=== PATIENT | male | born 1950 | race Caucasian/White ===

== ENCOUNTER → 2017-06-24 | Outpatient (CLI) | payer MEDICARE, OTHER ==
[2015-04-27 12:20] VITALS: BP 160/88
--- NOTE | 2017-06-24 11:14 | CARD ---
MR#: [id number] Date of Study: 06/24/2017 Ordering Physician: ALBERTO HO, Referring Physician: ALBERTO HO, Kae: Leidy Gomes [facility] APPROVED REPORT EXAM: Two-dimensional and M-mode echocardiogram with Doppler and color Doppler. Other Information Quality : Technically Difficult Technically limited study due to body habitus. INDICATION Palpitations 2D DIMENSIONS Left Atrium(2D)3.5 (1.6-4.0cm)IVSd1.3 (0.7-1.1cm) Aortic Root(2D)2.8 (2.0-3.7cm)LVDd5.6 (3.9-5.9cm) LVOT Diameter2.4 (1.8-2.4cm)PWd1.0 (0.7-1.1cm) LVDs3.5 (2.5-4.0cm)FS (%) 36.8 % SV101.6 mlLVEF(%)66.0 (>50%) Aortic Valve AoV Peak Dino.137.3cm/sAoV VTI29.2cm AO Peak GR.7.5mmHgLVOT Peak Dino.83.4cm/s LVOT VTI 16.17cmAO Mean GR.4mmHg RD (VMAX)2.19tg1XQJ (VTI)2.55cm2 Mitral Valve MV E Ddimoryi96.7cm/sMV DECEL PLLF232ao MV A Naiykorg87.3cm/sE/A Ratio1.0 Pulmonary Valve PV Peak Iazbpipr82.1cm/sPV Peak Grad.3mmHg LEFT VENTRICLE The left ventricle is normal size. There is normal left ventricular wall thickness. The left ventricu lar systolic function is normal. The Ejection Fraction is 60-65%. There is normal LV segmental wall m otion. RIGHT VENTRICLE The right ventricle is normal size. There is normal right ventricular wall thickness. The right ventr icular systolic function is normal. ATRIA The left atrium size is normal. The right atrium size is normal. The interatrial septum is intact wit h no evidence for an atrial septal defect or patent foramen ovale as noted on 2-D or Doppler imaging. AORTIC VALVE The aortic valve is trileaflet. The aortic valve is mildly sclerotic. Doppler and Color Flow revealed no significant aortic regurgitation. There is no significant aortic valvular stenosis. MITRAL VALVE The mitral valve is normal in structure and function. There is no evidence of mitral valve prolapse. There is no mitral valve stenosis. Doppler and Color Flow revealed no mitral valve regurgitation note d. TRICUSPID VALVE The tricuspid valve is normal in structure and function. Doppler and Color Flow revealed trace tricus pid regurgitation. There is no tricuspid valve stenosis. PULMONIC VALVE The pulmonary valve is normal in structure and function. Doppler and Color Flow revealed trace pulmon ic valvular regurgitation. GREAT VESSELS The aortic root is normal in size. The ascending aorta is normal in size. The IVC is normal in size a nd collapses >50% with inspiration. PERICARDIAL EFFUSION There is no pleural effusion. There is no evidence of significant pericardial effusion. Critical Notification Critical Value: No <Conclusion> The left ventricular systolic function is normal. The Ejection Fraction is 60-65%. There is normal LV segmental wall motion. Doppler and Color Flow revealed trace tricuspid regurgitation. There is no evidence of significant pericardial effusion. Signed by : Alexis Anders, Electronically Approved : 06/24/2017 11:14:02
== END | disposition home or self-care (01) ==
LOC: ECHO 09:35
PROVIDERS: ATTEND Internal Medicine Cardiovascular Disease
DX: R00.2 Palpitations (principal); I07.1 Rheumatic tricuspid insufficiency
CPT/HCPCS: 93306

== ENCOUNTER 2021-02-23 19:29 | Emergency (ER) | payer MEDICARE ==
[~2021-02-23] VITALS: Ht 177.8 cm; Wt 141.6 kg
--- NOTE | 2021-02-23 19:55 | PHYS DOC ---
Past History Past Medical History: Arthritis, GERD, Hypertension Past Surgical History: Other Additional Past Surgical Histo: vericose veins Alcohol Use: Occasionally Drug Use: None Adult General Chief Complaint Chief Complaint: SYNCOPE HPI HPI Patient is a 70-year-old male presenting via EMS for fall. States he was at local restaurant and just ordered a beer to drink with friends. States he drank no more than a quarter of the beer when he in a seated position started getting lightheaded and dizzy. Patient reports he does not remember after that. It was observed that patient fell forward from seated position hitting anterior face on table and falling on the ground. There was witnessed loss of consciousness for less than 30 seconds that self resolved. There was no seizure activity or other concerning findings reported while patient was on the ground. EMS was immediately contacted to come and assess patient. On evaluation, patient AAO x3 and hemodynamically stable. Nonetheless, given the symptoms, patient sent to our ER for evaluation. Denies any recent changes in health, concerning ingestions, medication changes or sick contacts. Admits on arrival that he is still somewhat lightheaded and is nauseous. Medications reviewed, is on aspirin but no other anticoagulants Review of Systems Review of Systems Fourteen body systems of review of systems have been reviewed. See HPI for pertinent positives and negative responses, other rocha all other systems are negative, non-pertinent or non-contributory Physical Exam Physical Exam Constitutional: Pt is oriented to person, place, and time. Pt appears well-developed and well- nourished. HEENT: Head: Normocephalic and atraumatic. External ears unremarkable Conjunctivae and EOM are normal. Pupils are equal, round, and reactive to light. Oropharynx is clear and moist. No hematomas or lacerations or abrasions to face or scalp OP clear, there is residual blood present to bilateral nostrils and in posterior oropharynx, no malocclusion, dentition intact Nares clear, no nasal septal hematoma Midface stable Neck: C-spine midline nontender, no step-offs Cardiovascular: Normal rate, regular rhythm and normal heart sounds. Pulmonary/Chest: Effort normal and breath sounds normal. No respiratory distress. No wheezes. CTA bilaterally Abdominal: Soft and protuberant. Bowel sounds are normal. Pt exhibits no distension. There is no tenderness. Musculoskeletal: No bony tenderness to extremities, no deformities, full ROM extremities Chest wall stable Pelvis stable and non-tender No vertebral TTP and spine without stepoffs Neurological: Pt is alert and oriented to person, place, and time. Moving all extremities willfully, able to wiggle all fingers and toes Alert and oriented x 3 Cranial nerves II through XII intact Motor and sensory function intact No bladder or bowel anesthesia Skin: Skin is warm and dry. No abrasions, no lacerations Psychiatric: Behavior is appropriate for situation Current Patient Data Vital Signs Vital Signs Date Time Temp Pulse Resp B/P (MAP) Pulse Ox O2 Delivery O2 Flow Rate FiO2 02/23/21 19:32 98.1 68 25 92 Room Air Lab Results Laboratory Tests Test 02/23/21 19:40 02/23/21 19:51 White Blood Count 8.5 x10^3/uL Red Blood Count 4.84 x10^6/uL Hemoglobin 14.9 g/dL Hematocrit 44.6 % Mean Corpuscular Volume 92 fL Mean Corpuscular Hemoglobin 31 pg Mean Corpuscular Hemoglobin Concent 33 g/dL Red Cell Distribution Width 13.5 % Platelet Count 179 x10^3/uL Neutrophils (%) (Auto) 68 % Lymphocytes (%) (Auto) 20 % Monocytes (%) (Auto) 10 % Eosinophils (%) (Auto) 2 % Basophils (%) (Auto) 1 % Neutrophils # (Auto) 5.8 x10^3uL Lymphocytes # (Auto) 1.7 x10^3/uL Monocytes # (Auto) 0.8 x10^3/uL Eosinophils # (Auto) 0.2 x10^3/uL Basophils # (Auto) 0.1 x10^3/uL Sodium Level 140 mmol/L Potassium Level 3.6 mmol/L Chloride Level 103 mmol/L Carbon Dioxide Level 31 mmol/L Anion Gap 6 Blood Urea Nitrogen 20 mg/dL Creatinine 1.0 mg/dL Estimated GFR (Cockcroft-Gault) 73.5 BUN/Creatinine Ratio 20 Glucose Level 143 mg/dL Calcium Level 9.3 mg/dL Total Bilirubin 0.6 mg/dL Aspartate Amino Transf (AST/SGOT) 20 U/L Alanine Aminotransferase (ALT/SGPT) 26 U/L Alkaline Phosphatase 69 U/L Troponin I Quantitative < 0.017 ng/mL Total Protein 6.6 g/dL Albumin 3.8 g/dL Albumin/Globulin Ratio 1.4 Ethyl Alcohol Level < 10 mg/dL Glucose (Fingerstick) 141 mg/dL Current Medications Medications (Trade) Dose Ordered Sig/Naeem Route PRN Reason Start Time Stop Time Status Last Admin Dose Admin Ondansetron HCl (Zofran) 4 mg 1X ONCE IVP 02/23/21 20:00 02/23/21 20:01 UNV EKG EKG EKG ordered and interpreted by myself 1942 hrs. is sinus rhythm at 67 bpm, QTC 494 otherwise unremarkable intervals, left axis deviation, no acute ischemic findings, no STEMI Radiology/Procedures Radiology/Procedures Exam: CT head, maxillofacial and cervical spine INDICATION: Syncope with fall and anterior face, head TECHNIQUE: Sequential axial images through the head, face and cervical spine were obtained without the administration of IV contrast. Exposure: One or more of the following in the visualized dose reduction techn iques were utilized for this examination: 1. Automated exposure control 2. Adjustment of the MA and/or KV according to patient size 3. Use of iterative of reconstructive technique Comparisons: None FINDINGS: Head: No focal parenchymal lesion or hemorrhage is identified. There is no midline shift or sulcal effacement. No acute vascular territory infarction is identified. Cary-white distinction is preserved. The ventricular system is within normal limits without compression hydrocephalus. The basal cisterns are well maintained. Face: The visualized portions of the paranasal sinuses and mastoid air cells are well-pneumatized. No acute fractures. Globes intradural contents are normal. Cervical spine: Straightening of the cervical spine which may positional. Vertebral body heights are well-maintained. Fracture to the cervical spine is not identified. Mild multilevel spondylotic change in cervical spine with degenerative disc disease greatest at C4-C5 C5-C6 and C6-C7. Mild bilateral facet arthropathy is also noted in the cervical spine. Visualized paraspinal soft tissues are unremarkable. IMPRESSION: 1. No acute intracranial abnormality. 2. No acute traumatic injury identified at the face. 3. Negative CT C-spine for acute traumatic injury. Electronically signed by: Roya Warner MD (02/23/2021 8:38 PM) [facility] /////////////////////////// //////////////////////////// Study: XR CHEST 1V Indication: Fall. Syncopal episode. Shortness of air. Comparison: None. Findings: There appears to be a large hiatal hernia. Either asymmetric elevation of the left hemidiaphragm with the subjacent gastric bubble versus a manifestation of a hiatal hernia. The costophrenic angle on the left is not well delineated and a small pleural effusion could be present. At a minimum there is atelectasis at the left lung base. Probable atelectasis at the right lung base but much of the hazy attenuation at the lower half of the right lung is favored summation artifact. The cardiomediastinal silhouette is enlarged. No pneumothorax. Impression: 1. The study is limited by patient body habitus. 2. It is suspected that there is a large hiatal hernia. Possible asymmetric elevation of the left hemidiaphragm versus herniated stomach above the diaphragm with associated volume loss. It is difficult to exclude a small pleural effusion on the left. No pneumothorax. 3. Enlargement of the cardiomediastinal silhouette. Electronically signed by: VERONICA GUERRA MD (02/23/2021 8:45 PM) [facility] Heart Score C/O Chest Pain: No HEART Score for Chest Pain: HEART Score for Chest Pain Response (Comments) Value History Moderately Suspicious 1 ECG Normal 0 Age > 65 2 Risk Factors >3 Risk Factors or Hx CAD 2 Troponin < Normal Limit 0 Total 5 Risk Factors: Risk Factors: DM, Current or recent (<one month) smoker, HTN, HLP, family history of CAD, obesity. Risk Scores: Risk Factors: DM, Current or recent (<one month) smoker, HTN, HLP, family history of CAD, obesity. Course & Med Decision Making Course & Med Decision Making ABCs unremarkable HPI, physical exam and comprehensive ER work-up nonconcerning for any emergent or surgical issues With that said, I did disclose I am unsure of etiology of patient's loss of consciousness. I discussed utility of further diagnostic work-up and admission for this but patient deferred having good access to primary care physician and pmo project manager in outpatient setting Even that patient was completely asymptomatic throughout entirety of ER visit after administration of Zofran, joint decision between myself, patient and at bedside to departure home. states he is at normal mentation and base line health. I did disclose all findings in its entirety today with both patient and . Patient has known hiatal hernia which explains chest x-ray findings. I disclosed low likelihood of other potentially life-threatening diagnoses such as pulmonary embolism, ACS etc. Strict return precautions were discussed at length with good verbalized understanding by patient and , all questions and concerns addressed prior to ER departure Bruno Disclaimer Dragon Disclaimer This electronic medical record was generated, in whole or in part, using a voice recognition dictation system. Departure Departure: Impression: Primary Impression: Syncope Disposition: HOME / SELF CARE / HOMELESS Condition: STABLE Referrals: SHAWN CRAWFORD MD (PCP) Patient Instructions: Syncope Additional Instructions: You were seen for syncope. You should make sure to drink plenty of fluids. It is unclear what caused your symptoms but your initial evaluation did not show any concerning symptoms or features. Return to the ED immediately if you develop worsening symptoms, chest pain, shortness of breath, numbness, tingling, weakness, vision change, or any other new or concerning symptoms. You should follow up with your primary care doctor/pmo project manager in a few days to have your labs repeated and to be evaluated again as further diagnostic work-up might be indicated. DEMARCUS BRUNER DO Feb 23, 2021 19:55
[2021-02-23 20:00] LABS: BASO # 0.1 x10^3/uL (0.0-0.2); BASO % 1 % (0-3); EOS # 0.2 x10^3/uL (0.0-0.7); EOS % 2 % (0-3); HEMATOCRIT 44.6 % (39.0-53.0); HEMOGLOBIN 14.9 g/dL (13.0-17.5); LYMPH # 1.7 x10^3/uL (1.0-4.8); LYMPH % 20 % (24-48); MEAN CORPUSCULAR HEMOGLOBIN 31 pg (25-35); MEAN CORPUSCULAR HGB CONC 33 g/dL (31-37); MEAN CORPUSCULAR VOLUME 92 fL (79-100); MONO # 0.8 x10^3/uL (0.0-1.1); MONO % 10 % (0-9); NEUT # 5.8 x10^3uL (1.8-7.7); NEUT % 68 % (31-73); PLATELET COUNT 179 x10^3/uL (140-400); RED BLOOD COUNT 4.84 x10^6/uL (4.30-5.70); RED CELL DISTRIBUTION WIDTH 13.5 % (11.5-14.5); WHITE BLOOD COUNT 8.5 x10^3/uL (4.0-11.0)
--- NOTE | 2021-02-23 20:00 | EKG ---
[address] [address] Test Date: 2021-02-23 Test Time: 19:32:07 Pat Name: JACOBY FAULKNER Department: Room: Gender: M Director Of Contracts: : 1950 Requested By: DEMARCUS BRUNER Order Number: [id number] Reading MD: Alexis Anders Measurements Intervals [place] Rate: 67 P: 38 MT: 156 QRS: -23 QRSD: 102 T: 51 QT: 464 QTc: 494 Interpretive Statements SINUS RHYTHM LEFT ATRIAL ABNORMALITY LEFTWARD AXIS ST & T ABNORMALITY, CONSIDER HIGH LATERAL ISCHEMIA OR LEFT VENTRICULAR STRAIN ABNORMAL ECG RI6.02 No previous ECG available for comparison Electronically Signed On 03-01-2021 13:02:22 CDT by Alexis Anders
[2021-02-23 20:11] LABS: CALCIUM 9.3 mg/dL (8.5-10.1); GFR 73.5; POTASSIUM 3.6 mmol/L (3.5-5.1)
[2021-02-23 20:17] LABS: ALBUMIN 3.8 g/dL (3.4-5.0); ALBUMIN/GLOBULIN RATIO 1.4 (1.0-1.7); TOTAL BILIRUBIN 0.6 mg/dL (0.2-1.0); TOTAL PROTEIN 6.6 g/dL (6.4-8.2)
[2021-02-23] MEDS: ONDANSETRON PF 4 MG/2 ML VIAL. IVP ONE (20:38)
--- NOTE | 2021-02-23 20:40 | RAD ---
Exam: CT head, maxillofacial and cervical spine INDICATION: Syncope with fall and anterior face, head TECHNIQUE: Sequential axial images through the head, face and cervical spine were obtained without th e administration of IV contrast. Exposure: One or more of the following in the visualized dose reduction techniques were utilized for this examination: 1. Automated exposure control 2. Adjustment of the MA and/or KV according to patient size 3. Use of iterative of reconstructive technique Comparisons: None FINDINGS: Head: No focal parenchymal lesion or hemorrhage is identified. There is no midline shift or sulcal effaceme nt. No acute vascular territory infarction is identified. Cary-white distinction is preserved. The ventricular system is within normal limits without compression hydrocephalus. The basal cisterns are well maintained. Face: The visualized portions of the paranasal sinuses and mastoid air cells are well-pneumatized. No acute fractures. Globes intradural contents are normal. Cervical spine: Straightening of the cervical spine which may positional. Vertebral body heights are well-maintained. Fracture to the cervical spine is not identified. Mild multilevel spondylotic change in cervical spine with degenerative disc disease greatest at C4-C5 C5-C6 and C6-C7. Mild bilateral facet arthropathy is also noted in the cervical spine. Visualized paraspinal soft tissues are unremarkable. IMPRESSION: 1. No acute intracranial abnormality. 2. No acute traumatic injury identified at the face. 3. Negative CT C-spine for acute traumatic injury. Electronically signed by: Roya Warner MD (02/23/2021 8:38 PM) [facility]
--- NOTE | 2021-02-23 20:48 | RAD ---
Study: XR CHEST 1V Indication: Fall. Syncopal episode. Shortness of air. Comparison: None. Findings: There appears to be a large hiatal hernia. Either asymmetric elevation of the left hemidiaphragm with the subjacent gastric bubble versus a manifestation of a hiatal hernia. The costophrenic angle on th e left is not well delineated and a small pleural effusion could be present. At a minimum there is at electasis at the left lung base. Probable atelectasis at the right lung base but much of the hazy att enuation at the lower half of the right lung is favored summation artifact. The cardiomediastinal caron houette is enlarged. No pneumothorax. Impression: 1. The study is limited by patient body habitus. 2. It is suspected that there is a large hiatal hernia. Possible asymmetric elevation of the left hem idiaphragm versus herniated stomach above the diaphragm with associated volume loss. It is difficult to exclude a small pleural effusion on the left. No pneumothorax. 3. Enlargement of the cardiomediastinal silhouette. Electronically signed by: VERONICA GUERRA MD (02/23/2021 8:45 PM) [facility]
[2021-02-23 20:54] VITALS: BP 134/94
== END 2021-02-23 21:25 | disposition home or self-care (01) ==
LOC: ER 19:29
DX: R55 Syncope and collapse (principal); R42 Dizziness and giddiness; K21.9 Gastro-esophageal reflux disease without esophagitis; I10 Essential (primary) hypertension
CPT/HCPCS: 36415; 70450; 70486; 71045; 72125; 80053; 82947; 84484; 85025; 93005; 96374; 99285; G0480; J2405

== ENCOUNTER → 2021-05-22 | Outpatient (CLI) | payer MEDICARE, BC ==
--- NOTE | 2021-05-23 16:45 | CARD ---
MR#: [id number] Date of Study: 05/22/2021 Ordering Physician: ALBERTO BRYAN, Referring Physician: ALBERTO BRYAN, Tech: Vanessa Yuan, [facility] APPROVED REPORT EXAM: Two-dimensional and M-mode echocardiogram with Doppler and color Doppler. Other Information Quality : AverageHR: 71bpm Technically limited study due to body habitus. INDICATION Dyspnea RISK FACTORS Hypertension 2D DIMENSIONS Left Atrium(2D)3.7 (1.6-4.0cm)IVSd1.5 (0.7-1.1cm) Aortic Root(2D)3.4 (2.0-3.7cm)LVDd5.8 (3.9-5.9cm) LVOT Diameter2.1 (1.8-2.4cm)PWd1.3 (0.7-1.1cm) LVDs3.5 (2.5-4.0cm)FS (%) 40.1 % SV115.0 mlLVEF(%)60.0 (>50%) Aortic Valve AoV Peak Dino.156.4cm/sAoV VTI33.4cm AO Peak GR.9.8mmHgLVOT Peak Dino.92.8cm/s LVOT VTI 20.12cmAO Mean GR.6mmHg RD (VMAX)2.00gd5SUP (VTI)2.11cm2 Mitral Valve MV E Xrdazmjn90.7cm/sMV E Peak Gr.4mmHg MV DECEL [id number] A Ujwuhglo68.3cm/s MV E Mean Gr.2mmHgE/A Ratio1.0 Pulmonary Valve PV Peak Hcpggrwx75.9cm/sPV Peak Grad.3mmHg Tricuspid Valve TR P. Kgefwmbi291nd/sRAP [id number] TR Peak Gr.24jpLiHIBS01asIp LEFT VENTRICLE The left ventricle is normal size. There is moderate concentric left ventricular hypertrophy. The lef t ventricular systolic function is normal and the ejection fraction is within normal range. The Eject ion Fraction is 50-55%. There is grossly normal wall motion. Technically difficult images. Tissue Dop pler imaging reveals moderate left ventricular diastolic dysfunction. RIGHT VENTRICLE The right ventricle is normal size. There is normal right ventricular wall thickness. The right ventr icular systolic function is normal. ATRIA The left atrium is mildly dilated. The right atrium is mildly dilated. The interatrial septum is inta ct with no evidence for an atrial septal defect or patent foramen ovale as noted on 2-D or Doppler im aging. AORTIC VALVE Not well visualized. Doppler and Color Flow revealed no significant aortic regurgitation. Calculated aortic valve area is 2.1 cm2 with maximum pressure gradient of 10 mmHg and mean pressure gradient of 6 mmHg. There is no aortic valvular vegetation. MITRAL VALVE The mitral valve is grossly normal in structure and function. There is no evidence of mitral valve pr olapse. There is no mitral valve stenosis. Doppler and Color-flow revealed trace mitral regurgitation . TRICUSPID VALVE The tricuspid valve is normal in structure and function. Doppler and Color Flow revealed trace tricus pid regurgitation with an estimated PAP of 26 mmHg. There is no tricuspid valve stenosis. PULMONIC VALVE The pulmonic valve is not well visualized. Doppler and Color Flow revealed mild pulmonic valvular reg urgitation. There is no pulmonic valvular stenosis. GREAT VESSELS The aortic root is normal in size. The IVC is normal in size and collapses >50% with inspiration. PERICARDIAL EFFUSION There is no evidence of significant pericardial effusion. Critical Notification Critical Value: No <Conclusion> The left ventricular systolic function is normal and the ejection fraction is within normal range. Th e Ejection Fraction is 50-55%. There is grossly normal wall motion. Technically difficult images. Signed by : Alberto Bryan, Electronically Approved : 05/23/2021 16:44:37
== END ==
LOC: ECHO 12:40
PROVIDERS: ATTEND Internal Medicine Cardiovascular Disease
DX: I37.1 Nonrheumatic pulmonary valve insufficiency (principal); I51.7 Cardiomegaly; R06.09 Other forms of dyspnea
CPT/HCPCS: 93306